=== PATIENT | female | born 1950 | race Caucasian/White ===

== ENCOUNTER 2020-07-05 14:32 | Outpatient (CLI) | payer MEDICARE, SELFPAY ==
[2020-07-05 15:33] LABS: Alanine Aminotransferase 25 U/L (14-59); Albumin Level 3.7 g/dL (3.4-5.0); Alkaline Phosphatase 98 U/L (46-116); Anion Gap 8 mmol/L (8-16); Aspartate Amino Transferase 21 U/L (15-37); Bilirubin,Total 0.6 mg/dL (0.00-1.00); Blood Urea Nitrogen 19 mg/dL (7-18); Carbon Dioxide 32 mmol/L (21-32); Chloride 104 mmol/L (98-108); Cholesterol 192 mg/dL (0-200); Estimated Glomerular Filt Rate > 60; Glucose 102 mg/dL (70-99); HDL Direct 44 mg/dL (40-60); LDL Cholesterol Calculated 108 mg/dL (<130); Osmolality Calculated 300 mOsm/kg (285-295); Potassium 4.5 mmol/L (3.5-5.1); Sodium 144 mmol/L (136-145); Triglycerides 200 mg/dL (0-150)
[2020-07-05 15:39] LABS: Hematocrit 45.6 % (35.0-42.0); Hemoglobin 14.2 g/dL (11.7-13.8)
== END 2020-07-05 14:33 | disposition home or self-care (01) ==
PROVIDERS: PCP Family Medicine Adolescent Medicine; Visit Provider Family Medicine Adolescent Medicine
DX: E78.2 Mixed hyperlipidemia (principal); I10 Essential (primary) hypertension; E11.9 Type 2 diabetes mellitus without complications; G62.9 Polyneuropathy, unspecified
CPT/HCPCS: 36415; 80053; 80061; 83036; 84443; 85014; 85018

== ENCOUNTER 2022-08-05 12:24 | Outpatient (CLI) | payer MEDICARE, MEDICAID, SELFPAY ==
[2022-08-05 12:50] LABS: Hemoglobin 12.7 g/dL (11.7-13.8); Mean Corpuscular HGB Conc 30.2 g/dL (32.0-36.0); Mean Corpuscular Hemoglobin 26.6 pg (27.0-31.0); Mean Corpuscular Volume 88.1 fL (78.0-102.0); Mean Platelet Volume 11.3 fl (9.2-11.8); Platelet Count Result 202 K/mm3 (150-420); Red Blood Count 4.77 M/mm3 (4.20-5.40); Red Cell Distribution Width 14.5 % (11.6-14.4); White Blood Count 13.2 K/mm3 (4.8-10.8)
[2022-08-05 13:12] LABS: Hemoglobin A1C 5.8 % (<5.7)
[2022-08-05 13:29] LABS: Alanine Aminotransferase 27 U/L (14-59); Albumin Level 3.4 g/dL (3.4-5.0); Alkaline Phosphatase 93 U/L (46-116); Anion Gap 7 mmol/L (8-16); Aspartate Amino Transferase 31 U/L (15-37); Bilirubin,Total 0.6 mg/dL (0.00-1.00); Blood Urea Nitrogen 11 mg/dL (7-18); CRP 1.3 mg/dL (0.0-0.9); Calcium 8.5 mg/dL (8.5-10.1); Carbon Dioxide 33 mmol/L (21-32); Chloride 104 mmol/L (98-108); Cholesterol 169 mg/dL (0-200); Estimated Glomerular Filt Rate > 60; Glucose 128 mg/dL (70-99); HDL Direct 48 mg/dL (40-60); LDL Cholesterol Calculated 80 mg/dL (<130); Osmolality Calculated 299 mOsm/kg (285-295); Potassium 4.1 mmol/L (3.5-5.1); Sodium 144 mmol/L (136-145); Total Protein 6.6 g/dL (6.4-8.2); Triglycerides 203 mg/dL (0-150)
[2022-08-05 14:01] LABS: Erythrocyte Sedimentation Rate 22 mm/hr (0-20)
== END 2022-08-05 12:25 | disposition home or self-care (01) ==
PROVIDERS: PCP Family Medicine Adolescent Medicine; Visit Provider Family Medicine Adolescent Medicine
DX: E78.2 Mixed hyperlipidemia (principal); E11.9 Type 2 diabetes mellitus without complications; I10 Essential (primary) hypertension; M79.10 Myalgia, unspecified site
CPT/HCPCS: 36415; 80053; 80061; 83036; 85027; 85652; 86140

== ENCOUNTER 2023-01-14 14:36 | Outpatient (CLI) | payer MEDICARE, MEDICAID, SELFPAY ==
--- NOTE | ~2023-01-14 | CT_ITS ---
EXAMINATION: CT humerus RT wo con DATE: 01/14/2023 15:06 INDICATION: Soft tissue mass at the right upper arm with intermittent weakness TECHNIQUE: High resolution computed tomography (CT) of the right upper arm was performed without intr avenous contrast. Additional sagittal and coronal reconstructions were performed. Automated exposure control and iterative reconstruction technique were employed. The dose-length product was 122.41 mGy- cm. COMPARISON: None FINDINGS: A couple small metallic markers are seen along the skin surface at the posterior aspect of the mid ri ght upper arm, presumably indicating the region of concern. There is a 2 mm calcification 2.3 cm deep to skin surface underlying the more distal of the 2 markers. This is of doubtful clinical significan ce and almost certainly too small to be palpable on physical exam. The subcutaneous fat and underlyin g musculature appears unremarkable. There does appear to be atrophy of the musculature of the right r otator cuff. No abnormal masses identified. 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 No right shoulder and elbow joint e ffusions or other abnormal fluid collections. IMPRESSION: 1. No evident soft tissue mass at the right upper arm. 2. 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 3. Suggestion of atrophy of the incompletely visualized musculature of the right rotator cuff which c ould be due to denervation change or rotator cuff tears. Reviewed, dictated and finalized at location A. IMPRESSION: 1. No evident soft tissue mass at the right upper arm. 2. 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 3. Suggestion of atrophy of the incompletely visualized musculature of the righ t rotator cuff which could be due to denervation change or rotator cuff tears.
== END 2023-01-14 14:37 | disposition home or self-care (01) ==
LOC: CHSIMG 14:40
PROVIDERS: PCP Family Medicine Adolescent Medicine; Visit Provider Family Medicine Adolescent Medicine
DX: M79.89 Other specified soft tissue disorders (principal); M19.021 Primary osteoarthritis, right elbow
CPT/HCPCS: 73200

== ENCOUNTER 2023-09-23 08:39 | Outpatient (CLI) | payer MEDICARE, SELFPAY ==
[2023-09-23 08:56] LABS: Hematocrit 39.9 % (35.0-42.0); Hemoglobin 11.9 g/dL (11.7-13.8); Mean Corpuscular HGB Conc 29.8 g/dL (32.0-36.0); Mean Corpuscular Hemoglobin 25.4 pg (27.0-31.0); Mean Corpuscular Volume 85.1 fL (78.0-102.0); Mean Platelet Volume 10.8 fl (9.2-11.8); Platelet Count Result 189 K/mm3 (150-420); Red Blood Count 4.69 M/mm3 (4.20-5.40); Red Cell Distribution Width 15.1 % (11.6-14.4); White Blood Count 9.1 K/mm3 (4.8-10.8)
[2023-09-23 09:13] LABS: Hemoglobin A1C 5.9 % (<5.7)
[2023-09-23 09:53] LABS: Alanine Aminotransferase 25 U/L (14-59); Albumin Level 3.2 g/dL (3.4-5.0); Alkaline Phosphatase 103 U/L (46-116); Anion Gap 10 mmol/L (8-16); Aspartate Amino Transferase 24 U/L (15-37); Bilirubin,Total 0.6 mg/dL (0.00-1.00); Blood Urea Nitrogen 10 mg/dL (7-18); Calcium 8.3 mg/dL (8.5-10.1); Carbon Dioxide 31 mmol/L (21-32); Chloride 101 mmol/L (98-108); Cholesterol 188 mg/dL (0-200); Estimated Glomerular Filt Rate > 60; Glucose 118 mg/dL (70-99); HDL Direct 47 mg/dL (40-60); LDL Cholesterol Calculated 89 mg/dL (<130); Osmolality Calculated 294 mOsm/kg (285-295); Potassium 3.7 mmol/L (3.5-5.1); Sodium 142 mmol/L (136-145); Total Protein 6.7 g/dL (6.4-8.2); Triglycerides 259 mg/dL (0-150)
== END 2023-09-23 08:40 | disposition home or self-care (01) ==
LOC: CHSLAB 08:41
PROVIDERS: PCP Family Medicine Adolescent Medicine; Visit Provider Family Medicine Adolescent Medicine
DX: E78.2 Mixed hyperlipidemia (principal); E11.9 Type 2 diabetes mellitus without complications; I10 Essential (primary) hypertension
CPT/HCPCS: 36415; 80053; 80061; 83036; 85027

== ENCOUNTER 2024-04-04 14:00 | Emergency (ER) | payer MEDICARE, SELFPAY ==
--- NOTE | ~2024-04-04 | CT_ITS ---
EXAMINATION: CT abdomen pelvis w con DATE: 04/04/2024 16:22 INDICATION: Upper abdominal pain. Nausea, vomiting, diarrhea. TECHNIQUE: Computed tomography (CT) of the abdomen and pelvis was performed with 100 mL Omnipaque 350 intravenous contrast. Automated exposure control and iterative reconstruction technique were employe d. The dose-length product was 960.17 mGy-cm. COMPARISON: None. FINDINGS: The visualized portions of the lung bases demonstrate mild atelectasis. No pleural effusion . There is left atrial enlargement of the heart. No pericardial effusion. The liver is normal. There are changes of cholecystectomy. There is a 10 mm cyst in the spleen. The pancreas and adrenal glands are normal. There is cortical thinning of the kidneys. There are cysts in the kidneys measuring up to 11 mm on the left. There is a 6.8 cm uterine fibroid. There is diverticulosis of the colon without e vidence of diverticulitis. There are no dilated loops of bowel. The appendix is not visualized. There are no pathologically enlarged lymph nodes. There is no free intraperitoneal fluid. There is calcifi ed atherosclerosis of the aorta and many of the other arteries. There is severe thoracic and lumbar s pondylosis. IMPRESSION: 1. Uterine fibroid. Reviewed, dictated and finalized at location A. IMPRESSION: 1. Uterine fibroid.
[2024-04-04 14:12] VITALS: BP 150/72; PULSE 58; RESP 16; TEMP 36.7; O2SAT 98
[2024-04-04 14:30] LABS: Basophils Absolute Auto 0.1 K/mm3 (0.0-0.1); Basophils Percent Auto 0.5 % (0.2-1.2); Eosinophils Absolute Auto 0.1 K/mm3 (0-0.3); Eosinophils Percent Auto 0.5 % (0-4.4); Hematocrit 36.7 % (37.0-47.0); Hemoglobin 11.5 g/dL (12.0-15.0); Immature Granulocyte Absolute 0.02 K/mm3 (0.00-0.031); Immature Granulocyte Percent A 0.2 % (0-0.5); Lymphocytes Absolute Auto 2.38 K/mm3 (0.9-3.2); Lymphocytes Percent Auto 24.3 % (18.3-44.2); Mean Corpuscular HGB Conc 31.3 g/dl (32-36); Mean Corpuscular Hemoglobin 27.3 pg (26-34); Mean Platelet Volume 11.4 fl (7.4-10.4); Monocytes Percent Auto 10.5 % (2.6-8.5); Neutrophils Absolute Auto 6.3 K/mm3 (1.3-6.7); Platelet Count Result 193 k/mm3 (150-375); Red Blood Count 4.22 M/mm3 (4.2-5.4); Red Cell Distribution Width 16.4 % (11.5-14.5); White Blood Count 9.8 K/mm3 (4.5-10.0)
[2024-04-04 14:39] LABS: Alanine Aminotransferase 13 U/L (6-35); Albumin Level 3.9 g/dL (3.5-5.1); Alkaline Phosphatase 66 U/L (38-126); Anion Gap 12 mmol/L (4-12); Aspartate Amino Transferase 27 U/L (14-36); Bilirubin,Total 0.7 mg/dL (0.2-1.3); Blood Urea Nitrogen 14 mg/dL (7-17); Calcium 8.5 mg/dL (8.4-10.2); Carbon Dioxide 27 mmol/L (22-30); Chloride 101 mmol/L (98-107); Estimated CRCL calculation 58 ml/min; Estimated Glomerular Filt Rate > 60; Glucose 111 mg/dL (65-110); Lipase 101 U/L (23-300); Potassium 3.8 mmol/L (3.4-5.0); Sodium 140 mmol/L (137-145)
--- NOTE | 2024-04-04 15:58 | ED.ABDPAIN ---
HPI - Abdominal Pain General Chief Complaint: Abdominal Pain <DENNY Matthew Last Filed: 04/04/24 16:27> Stated Complaint: abd pain, N/V/D <DENNY Matthew Last Filed: 04/04/24 16:27> Time Seen by Provider: 04/04/24 15:59 <DENNY Matthew Last Filed: 04/04/24 16:27> Focused HPI: Patient is a 73 y/o female who presents to the ED via EMS from home with c/o N/V/D. Patient reports having nausea, vomiting, diarrhea for the past 2 days. Reports diarrhea is the most bothersome sx at this time. Denies rectal bleeding or melena. Has been taking pepto bismol for sx's. Reports pain throughout upper abdomen. Does also report mild cough, denies fevers. GENERAL: Elderly, obese with BMI of 36.2, and in no acute distress. HEAD: Normocephalic, atraumatic. CHEST: Clear to auscultation. ?No respiratory distress. HEART: Regular rate and rhythm.? ABD: Mild TTP throughout upper abdomen. NEURO: ?Alert and oriented x3. Patient screened in triage and initial orders placed.? ?Additional care and disposition to be based upon?diagnostic testing and treatment. <Delores Massey PA-C - Last Filed: 04/04/24 16:27> Source: patient <DENNY Matthew Last Filed: 04/04/24 16:27> Mode of arrival: EMS <DENNY Matthew Last Filed: 04/04/24 16:27> Limitations: no limitations <DENNY Matthew Last Filed: 04/04/24 16:27> History of Present Illness HPI narrative: Agree with the above triage note. Patient states she has been having difficulty eating foods but has been drinking fluids. She denies fever, dysuria or hematuria. Prior abdominal surgeries include cholecystectomy. 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 HEAD: Normocephalic, atraumatic. EYES: PERRLA and EOMI. ENT: Nares clear, no rhinorrhea or epistaxis. Mucous membranes moist. NECK: Supple. CHEST: Clear to auscultation. No respiratory distress. HEART: Regular rate and rhythm. No murmur heard. Normal peripheral pulses. ABDOMEN: Soft, nontender, nondistended, normal active bowel sounds. No rebound, guarding or rigidity. No CVA tenderness. EXTREMITIES: Normal range of motion. No edema. SKIN: Warm, dry, no rash. NEURO: No focal deficits. Alert and oriented x3 <Madeline Estrada PA-C - Last Filed: 04/04/24 18:41> Course Vital Signs Vital signs: Vital Signs Temperature 98.1 F 04/04/24 14:12 Pulse Rate 58 L 04/04/24 14:12 Respiratory Rate 16 04/04/24 14:12 Blood Pressure 150/72 H 04/04/24 14:12 Pulse Oximetry 98 04/04/24 14:12 Oxygen Delivery Room Air 04/04/24 14:12 Temperature 98.1 F 04/04/24 14:12 Pulse Rate 58 L 04/04/24 14:12 Respiratory Rate 16 04/04/24 14:12 Blood Pressure 150/72 H 04/04/24 14:12 Pulse Oximetry 98 04/04/24 14:12 Oxygen Delivery Room Air 04/04/24 14:12 <Delores Massey PA-C - Last Filed: 04/04/24 16:27> Vital Signs Temperature 98.1
[2024-04-04 16:09] LABS: Appearance Urine Cloudy (Clear); Bacteria Urine 4+ /hpf; Bilirubin Urine Negative (Negative); Blood Urine Negative (Negative); Color Urine Yellow (Yellow); Glucose Urine UA Negative (Negative); Ketones Urine Negative (Negative); Leukocyte Esterase Ur 2+ LEU/UL (Negative); Nitrate Urine Positive (Negative); Protein Urine Negative (Negative); RBC Urine 0-2 /hpf (0-2); Specific Grav Ur 1.015 (1.001-1.035); Squamous Epithelial Cell Urine Few /hpf (Few); Urobilinogen Urine 0.2 mg/dL (<2.0); WBC Urine 21-50 /hpf (0-3)
[2024-04-04 16:10] LABS: Add Urine Microscopic? YES
[2024-04-04 16:49] LABS: Influenza A QL RT-PCR Negative (Negative); Influenza B QL RT-PCR Negative (Negative); RSV RNA, RT-PCR Negative (Negative); SARS-CoV-2 RNA PCR Negative (Negative)
[2024-04-04] MEDS: SODIUM CHLORIDE 0.9% IV 1,000 ML 999 ML IV CONT (18:01)
[2024-04-04] MEDS: ONDANSETRON INJ 4 MG/2 ML VIAL IV PUSH (18:43)
[2024-04-04] MEDS: CEPHALEXIN 500 MG CAPSULE PO (18:43)
[2024-04-04 19:03] VITALS: BP 142/72; PULSE 64; RESP 20; O2SAT 97
== END 2024-04-04 19:03 | disposition home or self-care (01) ==
LOC: ANHED 18:54
PROVIDERS: Physician Assistant; Student in an Organized Health Care Education/Training Program; Emergency Provider Physician Assistant
DX: K52.9 Noninfective gastroenteritis and colitis, unspecified (principal); N39.0 Urinary tract infection, site not specified; D25.9 Leiomyoma of uterus, unspecified; Z20.822 Contact with and (suspected) exposure to COVID-19; Z90.49 Acquired absence of other specified parts of digestive tract
CPT/HCPCS: 36415; 74177; 80053; 81001; 83690; 85025; 87077; 87086; 87088; 87186; 87637; 96374; 99284; A9270; J2405; J7030; Q9967

== ENCOUNTER 2024-04-20 09:34 | Emergency (ER) | payer MEDICARE, MEDICAID, SELFPAY ==
[2024-04-20] VITALS (11 sets, daily range): BP systolic 141–181; BP diastolic 67–102; PULSE 64–69; RESP 16–18; TEMP 36–36.6; O2SAT 92–99
--- NOTE | ~2024-04-20 | CT_ITS ---
EXAMINATION: CT brain wo con DATE: 04/20/2024 10:48 INDICATION: Confusion. TECHNIQUE: Computed tomography (CT) of the head was performed without intravenous contrast. The mA wa s adjusted according to patient size. Iterative reconstruction technique was employed. The dose-lengt h product was 605.33 mGy-cm. COMPARISON: None FINDINGS: There are scattered areas of low attenuation in the cerebral white matter. There is no intr acranial hemorrhage, acute infarction, or abnormal intracranial mass lesion. The ventricles are oswaldo l in size. There are likely changes of ocular lens replacement surgeries. There is mild mucosal thick ening in the paranasal sinuses. There is a trace right mastoid effusion. There is a hemangioma in lef t parietal bone. IMPRESSION: 1. Moderate nonspecific cerebral white matter disease, which likely represents chronic small vessel i schemic disease. Reviewed, dictated and finalized at location A. IMPRESSION: 1. Moderate nonspecific cerebral white matter disease, which likely represents chronic small vessel ischemic disease.
--- NOTE | ~2024-04-20 | XR_ITS ---
EXAMINATION: XR chest 1V portable DATE: 04/20/2024 10:49 INDICATION: Confusion. TECHNIQUE: A single frontal view of the chest was obtained. COMPARISON: CT abdomen and pelvis 04/04/2024 FINDINGS: There is no pneumonia, pleural effusion, or pneumothorax. The heart size is normal. IMPRESSION: 1. No acute cardiopulmonary disease. Reviewed, dictated and finalized at location A.
--- NOTE | 2024-04-20 09:40 | ECG_ITS ---
Test Date: 2024-04-20 09:52:43 Measurements Intervals [place] Rate: 64 P: 42 TX: 195 QRS: -31 QRSD: 143 T: 30 QT: 484 QTc: 500 Interpretive Statements SINUS RHYTHM LEFT AXIS DEVIATION [QRS AXIS < -30] RIGHT BUNDLE BRANCH BLOCK [120+ ms QRS DURATION, UPRIGHT V1, 40+ ms S IN I/aVL/V4/V5/V6] LEFT VENTRICULAR HYPERTROPHY AND ST-T CHANGE [VOLTAGE CRITERIA PLUS ST/T ABNORMALITY] No previous ECG available for comparison Electronically Signed On 04-20-2024 10:00:10 CDT by Carson Rodriguez M.D.
--- NOTE | 2024-04-20 09:54 | ED.AMS ---
HPI - Altered Mental Status General Chief Complaint: Altered Mental Status Stated Complaint: FALL, FOUND ON FLOOR Source: patient and EMS Mode of arrival: EMS Limitations: altered mental status History of Present Illness HPI narrative: this is a 73-year-old female presents via EMS from after caregiver that went in to check on the patient father on the floor, the patient apparently was floor face down for [id number], she had fell out of bed patient denies any discomfort except for pain in the breast area with no back pain no headache no loss of consciousness. Patient has a history of diabetes and hypertension, there is no chest pain no shortness of breath no cough or congestion no fever chills no diarrhea constipation no nausea vomiting no abdominal pain. 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 Grandparent , 40's, [place] Myocardial infarction Social History Social History Smoking status: Never smoker Second hand tobacco smoke exposure: No Alcohol intake: never Substance use: never Substance use type: does not use Lack of Transportation: No Lack of Food: Often True Current Housing: I Have Housing Concerned About Future Housing: No Difficulty Paying Gas/Electric Bills: No Difficulty Paying for Meds: No Currently Unemployed: No Education: Trade/Vocational Certificate Difficulty w/ Childcare or Family Care: No Living arrangements: alone Occupation/Education: retired Gender identity (if verbalized by the patient): Female Sexual Orientation (if Verbalized by the Patient): Straight or Heterosexual Spiritual care concerns: No Agree to blood products: Yes Exam Const: General: no acute distress Nutritional Appearance: well nourished Limitations: altered mental status HENMT: Head: normal to inspection Eyes: Conjunctivae: conjunctivae normal Pupils: Equal, round and reactive pupils present EOM: EOMs intact bilaterally Neck: Neck: normal visual inspection, no lymphadenopathy and no meningeal signs Chest: Chest palpation & inspection: normal inspection of the chest Resp: Effort & Inspection: normal respiratory effort Auscultation: clear to auscultation bilaterally Cardio: Rate: regular rate Rhythm: regular rhythm GI: GI Palp: Yes Soft to palpation Auscultation: normal bowel sounds : General: Yes bladder normal to palpation Skin: General skin exam: normal color Rashes: no rashes Wounds: no wounds Neuro: General: moves all extremities, no meningeal signs and no focal motor deficits Cranial nerves: Yes Nystagmus not present Speech: normal speech Extrem: General: normal to inspection and no clubbing, cyanosis or edema Psych: Mental Status: mental status grossly normal Course Course Emergency Course: Reassessment of patient patient is doing well has some basically returned to her baseline blood pressure currently stable at 140 1/67 labs including UA reviewed and urinalysis w
[2024-04-20 09:58] LABS: Basophils Absolute Auto 0.06 K/mm3 (0.00-0.10); Basophils Percent Auto 0.6 % (0.0-1.0); Eosinophils Absolute Auto 0.11 K/mm3 (0.02-0.50); Eosinophils Percent Auto 1.2 % (1.0-6.0); Hematocrit 38.9 % (35.0-42.0); Hemoglobin 11.8 g/dL (11.7-13.8); Immature Granulocyte Absolute 0.03 K/mm3 (0.00-0.00); Immature Granulocyte Percent A 0.3 % (0.0-0.0); Lymphocytes Percent Auto 22.3 % (18.0-42.0); Mean Corpuscular HGB Conc 30.3 g/dL (32-36); Mean Corpuscular Hemoglobin 26.2 pg (27.0-31.0); Mean Corpuscular Volume 86.4 fL (78.0-102.0); Mean Platelet Volume 11.6 fl (9.2-11.8); Monocytes Absolute Auto 0.96 K/mm3 (0.10-0.90); Monocytes Percent Auto 10.2 % (2.0-11.0); Neutrophils Absolute Auto 6.14 K/mm3 (1.70-7.20); Neutrophils Percent Auto 65.4 % (50.0-70.0); Platelet Count Result 206 K/mm3 (150-420); Red Cell Distribution Width 16.2 % (11.6-14.4); White Blood Count 9.4 K/mm3 (4.8-10.8)
[2024-04-20 10:21] LABS: Alanine Aminotransferase 11 U/L (14-59); Albumin Level 3.3 g/dL (3.4-5.0); Alkaline Phosphatase 86 U/L (46-116); Anion Gap 7 mmol/L (4-12); Aspartate Amino Transferase 19 U/L (15-37); Bilirubin,Total 0.6 mg/dL (0.00-1.00); Blood Urea Nitrogen 7 mg/dL (7-18); Calcium 8.7 mg/dL (8.5-10.1); Carbon Dioxide 32 mmol/L (21-32); Chloride 104 mmol/L (98-108); Creatine Kinase 69 U/L (26-192); Estimated CRCL calculation 54 ml/min; Estimated Glomerular Filt Rate > 60; Glucose 106 mg/dL (70-99); NT Pro B Type Natriuretic Pept 1111 pg/mL (0-450); Osmolality Calculated 294 mOsm/kg (285-295); Potassium 3.3 mmol/L (3.5-5.1); Sodium 143 mmol/L (136-145); Total Protein 6.7 g/dL (6.4-8.2); Troponin I 17.7 ng/L (0.00-60.4)
[2024-04-20 10:27] LABS: Partial Thromboplastin Time 26.4 Sec (23.9-30.70); Prothrombin Time 10.8 Seconds (9.50-12.1)
[2024-04-20 10:29] LABS: Add Urine Microscopic? NO; Appearance Urine Clear (Clear); Bilirubin Urine Negative (Negative); Blood Urine Negative (Negative); Color Urine Light Yellow (Yellow); Glucose Urine UA Negative (Negative); Ketones Urine Negative (Negative); Leukocyte Esterase Ur Negative LEU/UL (Negative); Nitrate Urine Negative (Negative); Protein Urine Negative (Negative); Urobilinogen Urine 0.2 mg/dL (0.2-1.0)
[2024-04-20 10:36] LABS: SARS-CoV-2 RNA PCR Negative (Negative)
[2024-04-20 10:38] LABS: Influenza A QL RT-PCR Negative (Negative); Influenza B QL RT-PCR Negative (Negative); RSV RNA, RT-PCR Negative (Negative)
[2024-04-20 10:38] LABS: Amphetamine Screen Urine Negative (Negative); Barbiturate Screen Urine Negative (Negative); Benzodiazepines Screen Urine Negative (Negative); Cannabinoid Screen Urine Negative (Negative); Cocaine Screen Urine Negative (Negative); Methadone Screen Urine Negative (Negative); Opiate Screen Urine Negative (Negative); Phencyclidine Screen Urine Negative (Negative)
[2024-04-20] MEDS: POTASSIUM BICARBONATE 25 MEQ TABEF 50 MEQ PO (11:04)
== END 2024-04-20 11:17 | disposition home or self-care (01) ==
PROVIDERS: Emergency Provider Emergency Medicine; PCP Family Medicine Adolescent Medicine
DX: R41.82 Altered mental status, unspecified (principal); N64.4 Mastodynia; Z20.822 Contact with and (suspected) exposure to COVID-19; Z79.899 Other long term (current) drug therapy; W06.XXXA Fall from bed, initial encounter
CPT/HCPCS: 36415; 70450; 71045; 80053; 80307; 81003; 82550; 83605; 83880; 84484; 85025; 85610; 85730; 87637; 93005; 99284; A9270

== ENCOUNTER 2024-07-27 12:07 | Outpatient (CLI) | payer MEDICARE, MEDICAID, SELFPAY ==
--- NOTE | ~2024-07-27 | XR_ITS ---
Right Shoulder Technique: AP and scapular Y views were obtained. Clinical History: pain Findings: No fracture or dislocation is seen. Humeral head is high riding. The glenohumeral and acrom ioclavicular joint spaces are preserved. Soft tissues are unremarkable. Impression: High riding humeral head could reflect underlying rotator cuff tear. Reviewed, dictated and finalized at location . COLD MEAT Impression: High riding humeral head could reflect underlying rotator cuff tear.
== END 2024-07-27 12:08 | disposition home or self-care (01) ==
PROVIDERS: PCP Family Medicine Adolescent Medicine; Visit Provider Family Medicine Adolescent Medicine
DX: M25.511 Pain in right shoulder (principal)
CPT/HCPCS: 73030

== ENCOUNTER 2025-04-20 17:17 | Emergency (ER) | payer MEDICARE, MEDICAID, SELFPAY ==
--- NOTE | ~2025-04-20 | CT_ITS ---
History: Fall 04/20/2024, PROCEDURE: CT head without contrast. COMPARISON: 04/20/2024 TECHNIQUE: Axial imaging of the head performed from the skull base to the vertex without IV contrast. Sagittal a nd coronal reformations obtained. DLP: 681 mGy-cm FINDINGS: The ventricles are enlarged. The dilatation of the ventricles is proportional to the degree of sulcal prominence, not uncommon in the senescent brain. Decreased attenuation is identified within the periventricular white matter, likely secondary to micr ovascular ischemic disease, in a patient of this age. There is no mass, mass effect or midline shift. There is no abnormal extra-axial fluid collection or intracranial hemorrhage. Visualized paranasal sinuses are clear. The mastoid air cells are well aerated. No acute displaced fractures within the overlying cranium. Impression: No acute intracranial hemorrhage or suspicious mass effect. Reviewed, dictated and finalized at location A. Impression: No acute intracranial hemorrhage or suspicious mass effect.
--- NOTE | ~2025-04-20 | XR_ITS ---
HISTORY: fall, b/l shoulder pain COMPARISON: 07/27/2024 TECHNIQUE: 3 views of the right shoulder were performed FINDINGS: No acute fracture. The glenohumeral and acromioclavicular joint spaces are narrowed, consistent with degenerative diseas e. The visualized portion of the adjacent right lung is clear. The humeral head is well seated within the glenoid fossa. IMPRESSION: Degenerative disease, without acute fracture or anterior dislocation. Reviewed, dictated and finalized at location A.
--- NOTE | ~2025-04-20 | XR_ITS ---
HISTORY: Fall, pain in region of coccyx COMPARISON: None. Reference is made to a CT examination of the abdomen and pelvis dated 04/04/2024. TECHNIQUE: 2 views of the sacrum and coccyx were performed FINDINGS: No acute or subacute fracture. Significant degenerative disease is identified with osteophyte formation, disc space narrowing, endpl ate changes and facet arthropathy. Irregular contour to the coccyx is noted, unchanged from CT examination performed in 2023. Densely calcified atherosclerotic disease within the bilateral iliac arteries and distal abdominal ao rta. Remaining soft tissues are otherwise unremarkable without radiopaque foreign body. Heterogeneous appearance of the bone mineralization is identified, for which clinical correlation is needed. IMPRESSION: Degenerative disease, without acute fracture. Reviewed, dictated and finalized at location A.
--- NOTE | ~2025-04-20 | XR_ITS ---
HISTORY: fall, b/l shoulder pain COMPARISON: None TECHNIQUE: 4 views of the left shoulder were performed FINDINGS: No acute fracture. The glenohumeral and acromioclavicular joint space is maintained The visualized portion of the adjacent left lung is clear. The humeral head is well seated within the glenoid fossa. IMPRESSION: No acute fracture or anterior dislocation. Reviewed, dictated and finalized at location A.
--- NOTE | ~2025-04-20 | CT_ITS ---
History: Fall PROCEDURE: CT cervical spine without intravenous contrast. COMPARISON: None TECHNIQUE: Multiple contiguous axial images of the cervical spine were performed without the administration of i ntravenous contrast. DLP: 317 mGy-cm FINDINGS: Straightening of the normal curvature of the cervical spine is identified. Severe degenerative disease is identified with osteophyte formation, disc space narrowing, endplate c hanges and facet arthropathy. A heterogeneous appearance of the bone marrow is detected, for which clinical correlation is needed. No acute fractures are present. The visualized portions of the bilateral lung apices are unremarkable. No soft tissue abnormality is present. The airway is patent. Impression: Degenerative disease, without acute fracture. Reviewed, dictated and finalized at location A. Impression: Degenerative disease, without acute fracture.
[2025-04-20 17:18] VITALS: BP 167/81; PULSE 64; RESP 18; TEMP 36.5; O2SAT 100
--- NOTE | 2025-04-20 17:21 | ED_ITS ---
HPI - Fall General Chief Complaint: Fall Stated Complaint: fall Time Seen by Provider: 04/20/25 17:21 Source: patient Mode of arrival: ambulatory Limitations: no limitations History of Present Illness HPI Narrative: Patient is a 74-year-old female with a fall coming into the doorway at her house. There is a elevation difference and she slipped and fell at that point. She landed on her lower back /coccyx area and sustained injury. Further she hit her head and right shoulder and left shoulder and right hip. No loss of consciousness per se but she did claim she was on the ground for 3 hours and possibly unconscious. further, she slept many hours the following day. complaint: fall Onset (ago): hour(s) ( 2-3) Fall from: standing and from height (distance) ( ground level stepping up into a elevated doorway) Fall witnessed: no Place fall occurred: home Loss of consciousness: none Prolonged down time: no Symptoms prior to fall: none Context: tripped/slipped Location of injury: head, neck and pelvis ( right) Location of injury - extremities: Bilateral: shoulder Severity: moderate Severity scale (1-10): 5 Quality: sharp Associated symptoms (after fall): denies Related Data Allergies Allergy/AdvReac Type Severity Reaction Status Date / Time No Known Allergies Allergy Verified 04/20/25 19:53 Review of Systems 2 Review of Systems: All systems reviewed & are unremarkable except as noted in HPI and below Constitutional: Constitutional: Reports no additional constitutional complaints Eyes: Eyes: Reports no additional eye complaints ENT: Reports system reviewed and no additional complaints, except as documented Cardiovascular: Cardiovascular: Reports no additional cardiovascular complaints Respiratory: Respiratory: Reports no additional respiratory complaints Gastrointestinal: Gastrointestinal: Reports no additional gastrointestinal complaints Genitourinary: Genitourinary: Reports no additional female genitourinary complaints Musculoskeletal: Musculoskeletal: Reports no additional musculoskeletal complaints Integumentary/Breasts: Skin/Breast: Reports system reviewed and no additional complaints, except as docu Neurologic: Reports system reviewed and no additional complaints, except as documented Psychiatric: Psychiatric: Reports no additional psychiatric complaints Endocrine: Endocrine: Reports no additional endocrine complaints Hematologic/Lymphatic: Hematologic/Lymphatic: Reports no additional hematologic/lymphatic complaints Allergic/Immunologic: Allergic/Immunologic: Reports no additional allergic/immunologic complaints PMFSH Past Medical History Medical History 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 Grandparent , 40's, [place] Myocardial infarction Social History Social History Smoking status: Never smoker Second hand tobacco smoke exposure: No Alcohol intake: never Substance use: never Substance use type: does not use Lack of Transportation: No Lack of Food: Often True Current Housing: I Have Housing Concerned About Future Housing: No Difficulty Paying Gas/Electric Bills: No Difficulty Paying for Meds: No Currently Unemployed: No Education: Trade/Vocational Certificate Difficulty w/ Childcare or Family Care: No Living arrangements: alone Occupation/Education: retired Gender identity (if verbalized by the patient): Female Sexual Orientation (if Verbalized by the Patient): Straight or Heterosexual Spiritual care concerns: No Agree to blood products: Yes Exam 2 Const: General: healthy appearing Nutritional Appearance: well nourished Orientation/consciousness: patient oriented x3 HENMT: Head: normal to inspection Ears: external ears normal F david/Nose/Sinus: Normal external nose present Face and sinus: normal facial exam Mouth: Yes Normal oral and palatal mucosa present Teeth and gingiva: dentition normal Eyes: Conjunctivae: conjunctivae normal Pupils: Equal, round and reactive pupils present EOM: EOMs intact bilaterally Neck: Neck: normal visual inspection Chest: Chest palpation & inspection: normal inspection of the chest Resp: Effort & Inspection: normal respiratory effort and not labored A uscultation: clear to auscultation bilaterally and no crackles Cardio: Rate: regular rate Rhythm: regular rhythm Heart sounds: no murmurs GI: Inspection: non-distended GI Palp: Yes Soft to palpation and No Tenderness to palpation present (GI) Auscultation: normal bowel sounds : General: Yes bladder normal to palpation Back/Spine/Pelvis: Back: no CVA tenderness Skin: General skin exam: normal color Rashes: no rashes Wounds: no wounds Neuro: General: patient oriented x3, moves all extremities and no meningeal signs Cranial nerves: Yes Nystagmus not present Speech: normal speech G ait exam (Neuro): Normal gait present Other: NIH is 0, GCS is 15 Extrem: General: normal to inspection, no clubbing, cyanosis or edema and no pedal edema Other: tenderness to the bilateral shoulders and right hip with some ecchymosis to the right hip Psych: Mental Status: mental status grossly normal Affect: normal affect Attitude: cooperative Course Vital Signs Vital signs: Vital Signs Temperature 36.5 C 04/20/25 17:18 Pulse Rate 64 04/20/25 17:18 Respiratory Rate 18 04/20/25 17:18 Blood Pressure 167/81 H 04/20/25 17:18 Pulse Oximetry 100 04/20/25 17:18 Oxygen Delivery Room Air 04/20/25 17:18 Temperature 36.7 C 04/20/25 20:45 Pulse Rate 80 04/20/25 20:45 Respiratory Rate 18 04/20/25 20:45 Blood Pressure 141/81 H 04/20/25 20:45 Pulse Oximetry 98 04/20/25 20:45 Oxygen Delivery Room Air 04/20/25 20:45 MDM - Fall MDM Narrative Medical decision making narrative: patient is a 74-year-old female with multiple injuries after falling accidentally at home. We will get some x-rays/Labs and urine and pain control. Lab Data Attestation: I reviewed the patient's lab results. 04/20/25 19:30 04/20/25 19:30 Labs: Lab Results 04/20/25 04/20/25 Range/Units 18:46 19:30 WBC 8.1 (4.8-10.8) K/mm3 RBC 3.93 L (4.20-5.40) M/mm3 Hgb 9.1 L (11.7-13.8) g/dL Hct 31.8 L (35.0-42.0) % MCV 80.9 (78.0-102.0) fL MCH 23.2 L (27.0-31.0) pg MCHC 28.6 L (32-36) g/dL RDW 17.0 H (11.6-14.4) % Plt Count 220 (150-420) K/mm3 MPV 11.4 (9.2-11.8) fl Immature Gran % (Auto) 0.4 H (0.0-0.0) % Neut % (Auto) 62.3 (50.0-70.0) % Lymph % (Auto) 20.3 (18.0-42.0) % [place] % (Auto) 9.7 (2.0-11.0) % Eos % (Auto) 6.9 H (1.0-6.0) % Baso % (Auto) 0.4 (0.0-1.0) % Lymph # (Auto) 1.65 (1.10-4.50) K/mm3 [place] # (Auto) 0.79 (0.10-0.90) K/mm3 Eos # (Auto) 0.56 H (0.02-0.50) K/mm3 Baso # (Auto) 0.03 (0.00-0.10) K/mm3 Abs Immat Gran (auto) 0.03 H (0.00-0.00) K/mm3 Absolute Neuts (auto) 5.08 (1.70-7.20) K/mm3 Absolute Nucleated RBC 0.00 (0.00-0.00) K/mm3 Nucleated RBC % 0.0 (0-0.0) % PT 10.9 (9.50-12.1) Seconds INR 1.0 APTT 26.2 (23.9-30.70) Sec Sodium 140 (137-145) mmol/L Potassium 4.2 (3.4-5.0) mmol/L Chloride 105 (98-107) mmol/L Carbon Dioxide 28 (22-30) mmol/L Anion Gap 7 (4-12) mmol/L BUN 13 (7-17) mg/dL Creatinine 1.01 H (0.7-1.0) mg/dL Estim Creat Clear Calc 39 ml/min Estimated GFR 53 L (59 - ) Glucose 109 (65-110) mg/dL Calculated Osmolality 291 (285-295) mOsm/kg Calcium 8.6 (8.4-10.2) mg/dL Total Bilirubin 0.6 (0.2-1.3) mg/dL AST 28 (14-36) U/L ALT 14 (6-35) U/L Alkaline Phosphatase 92 (38-126) U/L Total Creatine Kinase 64 (30-135) U/L Troponin I < 0.012 (0.000-0.034) ng/mL Total Protein 6.7 (6.3-8.2) g/dL Albumin 3.9 (3.5-5.1) g/dL Urine Color Light yellow (Yellow) Urine Appearance Cloudy A (Clear) Urine pH 6.0 (5.0-8.0) Ur Specific [place] 1.010 (1.010-1.020) Urine Protein Negative (Negative) Urine Glucose (UA) Negative (Negative) Urine Ketones Trace H (Negative) Ur Blood (Man) Negative (Negative) Urine Nitrate Positive H (Negative) Urine Bilirubin Negative (Negative) Urine Urobilinogen 0.2 (0.2-1.0) mg/dL Leukocyte Esterase Rfl 2+ H (Negative) DOMINICK/UL Urine WBC 7-9 H (0-3) /hpf Urine WBC Clumps Present H (None) /hpf Ur Squamous Epith Cells Occasional (Few) /hpf Urine Bacteria 4+ H (None) /hpf Imaging Data Attestation: I personally reviewed and interpreted this imaging study as follows: Radiologist's impression: x-ray bilateral shoulders is negative for acute process sacrum and coccyx x-ray is negative for acute process CT scan of the head and neck show no acute process ECG Data EKG #1: Attestation: I personally reviewed and interpreted this ECG as follows: ECG completion date: 04/21/25 ECG completion time: 03:02 EKG Interpretation: bradycardia, sinus rhythm, no ectopy, non-specific ST changes, normal QRS, RBBB, normal QT and left axis Discharge Plan Discharge Clinical Impression: Acute UTI, Fall, Contusion Patient Disposition: Home Condition: Stable Instructions: Contusion in Adults (ED), Urinary Tract Infection in Older Adults (ED) Additional Instructions: please follow-up with the primary doctor in the next week. You have anemia that needs further investigation as an outpatient with the primary doctor. Your hemoglobin was 9.1. Patient Language: Yakut Prescriptions: New ciprofloxacin HCl [Cipro] 500 mg tablet 500 mg PO BID 7 Days Qty: 14 0RF No Action valsartan 160 mg tablet 160 mg PO DAILY Qty: 30 5RF clobetasol 0.05 % ointment 1 applic topical BID Qty: 15 0RF loperamide [Imodium A-D] 2 mg capsule 2 mg PO Q6H PRN (Reason: loose stool) Qty: 20 0RF furosemide 40 mg tablet 40 mg PO QAM PRN (Reason: edema) Qty: 30 0RF atorvastatin 40 mg tablet 40 mg PO DAILY Qty: 90 2RF buspirone 10 mg tablet See Rx Instructions .ROUTE .COMPLEX Qty: 60 3RF Dose Instruction: TAKE ONE TABLET BY MOUTH AT 9AM AND 5PM Rx Instructions: TAKE ONE TABLET BY MOUTH AT 9AM AND 5PM omeprazole 40 mg capsule,delayed release(DR/EC) See Rx Instructions .ROUTE .COMPLEX Qty: 30 11RF Dose Instruction: TAKE ONE CAPSULE ORALLY DAILY #1000 Rx Instructions: TAKE ONE CAPSULE ORALLY DAILY #1000 venlafaxine 75 mg capsule,extended release 24hr See Rx Instructions .ROUTE .COMPLEX Qty: 30 3RF Dose Instruction: TAKE ONE CAPSULE BY MOUTH DAILY #1000 Rx Instructions: TAKE ONE CAPSULE BY MOUTH DAILY #1000 oxybutynin chloride 15 mg tablet extended release 24hr See Rx Instructions .ROUTE .COMPLEX Qty: 30 3RF Dose Instruction: TAKE ONE TABLET BY MOUTH DAILY #0001 Rx Instructions: TAKE ONE TABLET BY MOUTH DAILY #0001 triamcinolone acetonide 0.1 % ointment See Rx Instructions .ROUTE .COMPLEX Qty: 80 0RF Dose Instruction: APPLY TO AFFECTED AREA TWICE A DAY DIRECTED Rx Instructions: APPLY TO AFFECTED AREA TWICE A DAY DIRECTED metoprolol tartrate 100 mg tablet See Rx Instructions .ROUTE .COMPLEX Qty: 120 7RF Dose Instruction: TAKE TWO TABLETS BY MOUTH TWICE A DAY Rx Instructions: TAKE TWO TABLETS BY MOUTH TWICE A DAY metformin 500 mg tablet extended release 24 hr 1,000 mg PO DAILY Qty: 60 7RF diclofenac sodium 75 mg tablet,delayed release (DR/EC) 75 mg PO BID Qty: 60 7RF lorazepam 2 mg tablet 2 mg PO BID PRN (Reason: anxiety) Qty: 60 5RF oxycodone-acetaminophen 10-325 mg tablet 1 tablet PO Q4H PRN (Reason: pain) Qty: 180 0RF trazodone 100 mg tablet 100 mg PO QHS Qty: 30 5RF Follow-up/Referrals: UNKNOWN,DOCTOR [Non-Staff] - Time of Disposition: 20:35
--- NOTE | 2025-04-20 17:21 | ECG_ITS ---
Test Date: 2025-04-20 17:21:13 Measurements Intervals [place] Rate: 57 P: 28 DE: 197 QRS: -26 QRSD: 138 T: -8 QT: 474 QTc: 463 Interpretive Statements SINUS BRADYCARDIA RIGHT BUNDLE BRANCH BLOCK LEFT VENTRICULAR HYPERTROPHY MINIMAL Q WAVES- HIGH LATERAL LEADS BASELINE ARTIFACT- I, II, III, AVR, AVL, AVF ABNORMAL ECG Compared to ECG 04/20/2024 09:52:43 HEART RATE HAS DECREASED Electronically Signed On 04-20-2025 18:57:31 CDT by Genaro Gould D.O.
--- NOTE | 2025-04-20 19:00 | PC.NURSE ---
report to alexx babcock
[2025-04-20 19:09] LABS: Add Urine Microscopic? YES; Glucose Urine UA Negative (Negative); Leukocyte Esterase Ur 2+ LEU/UL (Negative); Nitrate Urine Positive (Negative); Specific Grav Ur 1.010 (1.010-1.020)
[2025-04-20 19:41] LABS: Hematocrit 31.8 % (35.0-42.0); Hemoglobin 9.1 g/dL (11.7-13.8); Immature Granulocyte Percent A 0.4 % (0.0-0.0); Lymphocytes Absolute Auto 1.65 K/mm3 (1.10-4.50); Mean Corpuscular HGB Conc 28.6 g/dL (32-36); Mean Corpuscular Hemoglobin 23.2 pg (27.0-31.0); Mean Corpuscular Volume 80.9 fL (78.0-102.0); Nucleated Red Blood Cells Absolute Auto 0.00 K/mm3 (0.00-0.00); Nucleated Red Blood Cells Perc 0.0 % (0-0.0); Platelet Count Result 220 K/mm3 (150-420); Red Blood Count 3.93 M/mm3 (4.20-5.40); White Blood Count 8.1 K/mm3 (4.8-10.8)
[2025-04-20 19:47] LABS: Appearance Urine Cloudy (Clear)
[2025-04-20 19:48] LABS: Alanine Aminotransferase 14 U/L (6-35); Albumin Level 3.9 g/dL (3.5-5.1); Alkaline Phosphatase 92 U/L (38-126); Anion Gap 7 mmol/L (4-12); Aspartate Amino Transferase 28 U/L (14-36); Bilirubin,Total 0.6 mg/dL (0.2-1.3); Blood Urea Nitrogen 13 mg/dL (7-17); Calcium 8.6 mg/dL (8.4-10.2); Carbon Dioxide 28 mmol/L (22-30); Chloride 105 mmol/L (98-107); Creatine Kinase 64 U/L (30-135); Estimated CRCL calculation 39 ml/min; Estimated Glomerular Filt Rate 53; Glucose 109 mg/dL (65-110); Osmolality Calculated 291 mOsm/kg (285-295); Potassium 4.2 mmol/L (3.4-5.0); Sodium 140 mmol/L (137-145); Total Protein 6.7 g/dL (6.3-8.2)
[2025-04-20 19:50] LABS: INR 1.0; Partial Thromboplastin Time 26.2 Sec (23.9-30.70); Prothrombin Time 10.9 Seconds (9.50-12.1)
[2025-04-20 20:00] LABS: Troponin I < 0.012 ng/mL (0.000-0.034)
[2025-04-20] MEDS: CIPROFLOXACIN 500 MG TAB PO (20:28)
[2025-04-20 20:45] VITALS: BP 141/81; PULSE 80; RESP 18; TEMP 36.7; O2SAT 98
--- NOTE | 2025-04-25 13:28 | PC.NURSE ---
urine, gram neg bacilli, awaiting final
--- NOTE | 2025-04-26 13:10 | PC.NURSE ---
URINE CULTURE FINAL POSITIVE FOR E COLI PT ON CIPRO 500 BID FOR [address] PATI [place] ORDERS NEEDED
== END 2025-04-20 20:45 | disposition home or self-care (01) ==
PROVIDERS: Emergency Provider Emergency Medicine; PCP Family Medicine Adolescent Medicine
DX: N39.0 Urinary tract infection, site not specified (principal); S70.01XA Contusion of right hip, initial encounter; W01.0XXA Fall on same level from slipping, tripping and stumbling without subsequent striking against object, initial encounter; Y92.098 Other place in other non-institutional residence as the place of occurrence of the external cause
CPT/HCPCS: 36415; 70450; 72125; 72220; 73030; 80053; 81001; 82550; 84484; 85025; 85610; 85730; 87086; 87186; 93005; 99284; A9270

== ENCOUNTER 2025-05-15 14:53 | Outpatient (CLI) | payer MEDICARE, MEDICAID, SELFPAY ==
--- NOTE | ~2025-05-15 | XR_ITS ---
EXAMINATION: XR chest 2V, 05/15/2025 15:20 CDT HISTORY: Chronic cough COMPARISON: No comparisons available. Technique: 2 views obtained. Findings: The lungs are clear, no effusion. No pneumothorax. Heart is normal size. Mediastinal and hilar contours are within normal limits. Bony thorax no acute abnormality. Impression: No acute cardiopulmonary abnormality. Reviewed, dictated and finalized at location A. Impression: No acute cardiopulmonary abnormality.
[2025-05-15 16:10] LABS: Iron 34 ug/dL (37-170)
[2025-05-15 16:20] LABS: Percent Iron Saturation 7 % (20-50)
[2025-05-15 16:42] LABS: Thyroid Stimulating Hormone 0.590 uIU/mL (0.465-4.680)
[2025-05-15 17:19] LABS: Vitamin B12 324.0 pg/mL (239-931)
== END 2025-05-15 14:54 | disposition home or self-care (01) ==
LOC: CHSLAB 14:55
PROVIDERS: PCP Family Medicine Adolescent Medicine; Visit Provider Family Medicine Adolescent Medicine
DX: I10 Essential (primary) hypertension (principal); D64.9 Anemia, unspecified; R60.0 Localized edema; R05.9 Cough, unspecified
CPT/HCPCS: 36415; 71046; 82607; 82746; 83540; 83550; 84443

== ENCOUNTER 2025-05-29 10:27 | Outpatient (CLI) | payer MEDICARE, MEDICAID, SELFPAY ==
--- NOTE | ~2025-05-29 | MM_ITS ---
EXAMINATION: MM diagnostic [place] BI w princess INDICATION: 74-year-old female presents for imaging evaluation of right breast redness and scalene around the nipple. Patient has a history of breast cancer in mother and sister. COMPARISON: 02/26/2005 and 08/28/2004 TECHNIQUE: Digital Breast Tomosynthesis CC, MLO views of Both breasts and spot compression of the left breast were obtained with computer-aided detection to assist in interpretation of the study. FINDINGS: There are scattered areas of fibroglandular density. There is skin thickening of the periareolar region which represent an interval change. Circumscribed mass in the retroareolar region of the right breast at anterior depth is unchanged dating back to mammogram of 2003. Elsewhere, there are no mammographic features of malignancy. IMPRESSION: 1. Right breast periareolar skin thickening. 2. No evidence of malignancy in the Left breast. RECOMMENDATION: Right breast Diagnostic mammogram with appropriate spot compression views and ultrasound of the subareolar region. 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 Patient was rescheduled for a different. BI-RADS Category 0: Incomplete: Needs additional imaging evaluation. Reviewed, dictated and finalized at location B. IMPRESSION: 1. Right breast periareolar skin thickening. 2. No evidence of malignancy in the Left breast. RECOMMENDATION: Right breast Diagnostic mammogram with appropriate spot compression views and u ltrasound of the subareolar region. 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 Patient was rescheduled for a different. BI-RADS Category 0: Incomplete: Needs additional imaging evaluation.
== END 2025-05-29 10:28 | disposition home or self-care (01) ==
LOC: CHSIMG 10:28
PROVIDERS: PCP Family Medicine Adolescent Medicine; Visit Provider Family Medicine Adolescent Medicine
DX: N64.59 Other signs and symptoms in breast (principal); R92.8 Other abnormal and inconclusive findings on diagnostic imaging of breast
CPT/HCPCS: 77062; 77066; G0279

== ENCOUNTER 2025-05-30 09:15 | Outpatient (CLI) | payer MEDICARE, MEDICAID, SELFPAY ==
--- NOTE | ~2025-05-30 | MMUS_ITS ---
EXAMINATION: US breast RT limited, [id number] INDICATION: 74-year old female; Presents for evaluation of right breast redness and scaling around the nipple. No palpable lumps. COMPARISON: 05/29/2025 through 08/28/2004 TECHNIQUE: Digital breast tomosynthesis spot compression in CC and MLO views of Right breast were obtained with computer-aided detection to assist in interpretation of the study. MAMMOGRAM FINDINGS: There are scattered areas of fibroglandular density. There are no suspicious masses, calcifications, architectural distortion or any other abnormality in subareolar region. RIGHT BREAST ULTRASOUND FINDINGS: Targeted sonographic evaluation of the subareolar area was completed. There is no sonographic abnormality identified. IMPRESSION: 1. No mammographic or sonographic finding correlates to the area of concern in the RIGHT breast. 2. No mammographic evidence of malignancy within the RIGHT breast. Recommendations: Clinical management of patient's area of redness and scaling involving the right breast. Follow-up as clinically warranted. Annual screening bilateral mammography in 12 months BI-RADS 2, BENIGN Reviewed, dictated and finalized at location C. IMPRESSION: 1. No mammographic or sonographic finding correlates to the area of concern in the RIGHT breast. 2. No mammographic evidence of malignancy within the RIGHT breast. Recommendations: Clinical management of patient's area of redness and scaling involving the righ t breast. Follow-up as clinically warranted. Annual screening bilateral mammography in 12 months BI-RADS 2, BENIGN
== END 2025-05-30 09:16 | disposition home or self-care (01) ==
LOC: CHSIMG 09:17
PROVIDERS: PCP Family Medicine Adolescent Medicine; Visit Provider Family Medicine Adolescent Medicine
DX: N64.59 Other signs and symptoms in breast (principal)
CPT/HCPCS: 76642